=== PATIENT | male | born 1995 | race African-American/Black ===

== ENCOUNTER 2020-02-22 17:30 | Emergency (ER) | payer OTHER ==
[~2020-02-22] VITALS: Ht 190.5 cm; Wt 68.0 kg
[2020-02-22] MEDS ORDERED: CYCLOBENZAPRINE5 MG PO (18:03)
[2020-02-22] MEDS ORDERED: MOBIC7.5 MG PO (18:03)
[2020-02-22 18:19] VITALS: BP 98/61
== END 2020-02-22 18:34 | disposition home or self-care (01) ==
LOC: ER 17:30
DX: S16.1XXA Strain of muscle, fascia and tendon at neck level, initial encounter (principal); M62.838 Other muscle spasm; M25.511 Pain in right shoulder; M25.512 Pain in left shoulder; V49.9XXA Car occupant (driver) (passenger) injured in unspecified traffic accident, initial encounter; Y93.89 Activity, other specified; Y92.410 Unspecified street and highway as the place of occurrence of the external cause; Y99.8 Other external cause status